=== PATIENT | male | born 1940 | race Caucasian/White ===

== ENCOUNTER 2024-12-10 09:45 | Outpatient (AMB) | payer OTHER, SELFPAY ==
[2024-12-10 10:10] VITALS: BP 170/50; PULSE 34; RESP 18; TEMP 36.2; O2SAT 96
--- NOTE | 2024-12-10 10:10 | A.OFFPC_ITS ---
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 Required: No Accompanied by: Self / Same As Patient Allergies No Known Allergies Allergy (Verified 12/10/24 10:26) Medication List - Last Reconciled 12/10/24 by MICHELLE Rose atorvastatin (Lipitor) 10 mg PO DAILY carbidopa-levodopa 25-100 mg (Sinemet) 1 tab PO TID cyanocobalamin (vitamin B-12) ER (Vitamin B-12 ER) 2,000 mcg PO DAILY furosemide (Lasix) 20 mg PO DAILY lisinopril 10 mg PO DAILY Tobacco use date assessed: 12/10/24 Fall risk assessment: 1 Fall in past year Last assessed Fall Risk: 12/10/24 Dental Screening Dental Screen Date: 12/10/24 Did you have a dental visit in the last 12 months?: No Did you have a dental problem in the last 6 months where you did not have access to dental care?: No Was dental information given to patient?: No 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 Pulliam [facility], OBGYN:N/A Past medical history: Parkinson disease, hyperlipidemia, HTN, multiple falls, second-degree Mobitz 1 AV block, insomnia Medications: Trazodone 50 mg daily at bedtime, lisinopril 10 mg, furosemide 20 mg-was decreased to 10 mg in the hospital, Family HX: heart issues, brother has CA, Problem: The patient is an 84-year-old male presenting with hypertension, bradycardia, and Parkinson's disease symptoms. Hypertension has been a long-standing issue, previously managed with lisinopril, which the patient has been unable to refill due to a change in primary care pro viders. Blood pressure readings at home were around 140/90 mmHg, but recent measurements have been higher. Bradycardia was noted during a previous hospital admission where a pacemaker was recommended but declined by the patient. The heart rate has been consistently low. Parkinson's disease was suspected by a neurologist, although definitive tests were not conducted. The patient experiences difficulty walking and has been prescribed medication that initially caused itching, which has since resolved with dosage adjustments. Peripheral edema has been persistent, particularly in the feet, and is managed with furosemide. The patient refuses to wear compression stockings, which could aid in reducing the swelling. Insomnia is a significant issue, with the patient unable to sleep through the n ight despite trying melatonin and other gihz-fiz-jvskgdr remedies. Trazodone was previously prescribed at 50 mg but was ineffective, leading to consideration of dosage adjustment. Degenerative disc disease is present, contributing to mobility issues and possibly exacerbating the patient's difficulty in walking. Vitamin B12 deficiency was identified through blood tests, necessitating supplementation. 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 [facility] Medical History (Updated 12/13/24 @ 00:02 by MICHELLE Rose) Degenerative disc disease, lumbar Blindness left eye category 3, normal vision right eye Parkinsons disease Insomnia Multiple falls Second degree atrioventricular block, Mobitz (type) I HLD (hyperlipidemia) HTN (hypertension) Family History Paternal Grandfather Heart disease Paternal Uncle Myocardial infarction Social History Household Members: Family Housing: House Alcohol intake: never Patient Tobacco Use Status: Never used Tobacco e-Cigarette/Vaping Use: Never Used Current occupational status: retired Cognitive needs: No Hearing needs: No Vision needs: Yes Questionnaire PHQ-9 Over the last 2 weeks, how often have you been bothered by any of the following problems? 1. Little interest or pleasure in doing things: not at all 2. Feeling down, depressed, or hopeless: not at all 3. Trouble falling or staying asleep, or sleeping too much: nearly every day 4. Feeling tired or having little energy: more than half the days 5. Poor appetite or overeating: not at all 6. Feeling bad about yourself - or that you are a failure or have let yourself or your family down: not at all 7. Trouble concentrating on things, such as reading the newspaper or watching television: not at all 8. Moving or speaking so slowly that other people could have noticed. Or the opposite - being so fidgety or restless that you have been moving around a lot more than usual: not at all 9. Thoughts that you would be better off or of hurting yourself in some way: not at all Total score: 5 Depression Screening Interpretation: Negative Depression Screening Done: Yes 08607 - PHQ-9 Billing: Yes Source: Developed by Drs. Maciel Michel, Yaa Garcia, Shabbir Cyr and colleagues, with an educational olivia from [employer] Thrive Questionnaire Date Thrive assessed: 12/10/24 I am a: Patient What is your living situation today?: I have a steady place to live Within the past 12 months, did the food you bought not last and you didn't have the money to get more?: Often true Within the past 12 months, did you worry whether your food would run out before you got money to buy more?: Often true Do you have trouble paying for medicines?: No Do you have trouble getting transportation to medical appointments?: No Do you have trouble paying your heating and electricity bill?: No Do you have trouble taking care of your child, family member or friend?: No Do you have trouble with day-to-day activities such as bathing, preparing meals, shopping, managing finances, etc.?: Yes Are you currently unemployed and looking for a job?: No Are you interested in more education?: No Please select the resources that you would like help with: None Currently or been in a relationship where the following occur: No concerns reported THRIVE Score: 2 AUDIT C Alcohol Use Questionnaire (AUDIT-C) 1. How often do you have a drink containing alcohol?: Never 3. How often do you have six or more drinks on one occasion?: Never Total Score: 0 JH-7 AMB Questionnaire JH-7 Date JH - 7 assessed: 12/10/24 Feeling nervous, anxious, or on edge: 0 = Not at all Not being able to stop or control worryin = Not at all Worrying too much about different things: 0 = Not at all Trouble relaxin = Several days Being so restless that it is hard to sit still: 1 = Several days Becoming easily annoyed or irritable: 1 = Several days Feeling afraid as if something awful might happen: 0 = Not at all Total JH-7 score (0-4 normal; 5-9 mild; 10-14 moderate; 15-21 severe): 3 Source: Developed by Drs. Maciel Michel, Yaa Garcia, Shabbir Cyr and colleagues, with an educational olivia from [employer] JH-7 Assessment Billing JH-7 Assessment Tool: JH-7 Assessment 03477 Review of Systems Const Reports difficulty sleeping and Denies headache(s) Eyes Reports loss of vision (left eye) ENT Denies vertigo, Denies dizziness, Denies headache(s) and Denies sore throat Card Denies chest pain, Reports leg edema (Peripheral edema greater in left leg) and Denies lightheadedness Resp Denies cough, Denies hemoptysis and Denies wheezing GI Denies abdominal pain, Denies melena, Denies constipation, Denies diarrhea and Denies vomiting Denies dysuria, Denies urinary frequency and Denies urinary urgency Musc Reports back pain, Denies arthralgias, Denies joint swelling, Denies numbness and Denies tingling Neuro Denies Abnormal speech present, Denies behavioral changes, Denies vertigo, Denies dizziness, Denies headache(s), Reports loss of vision (left eye), Denies memory loss, Denies numbness and Denies tingling Psych Denies anxiety, Denies behavioral changes, Denies depression, Denies memory loss and Denies panic attacks Kashif/Lymph Denies easy bleeding and Denies easy bruising Aller/Immun Denies wheezing Physical exam (Primary Care) Vital Signs: Last Vital Signs Temp 97.1 F 12/10/24 10:10 Pulse 34 L 12/10/24 10:10 Resp 18 12/10/24 10:10 BP 170/50 H 12/10/24 10:10 Pulse Ox 96 12/10/24 10:10 Oxygen Delivery Method Room Air 12/10/24 10:10 Tobacco/Smoking Status: Tobacco use Status Tobacco use date assessed 12/10/24 12/10/24 10:23 Patient Tobacco Use Status Never used Tobacco 12/10/24 10:23 e-Cigarette/Vaping Use Never Used 12/10/24 10:23 PHQ-9: PHQ-9 Score PHQ-9: Total score 5 12/10/24 10:31 Depression Screening Interpretation: Negative Thrive Assessment: Date of Thrive Assessment Date Thrive assessed 12/10/24 12/10/24 10:23 Currently or been in a relationship where the following occur: No concerns reported Const General: healthy appearing, no acute distress, alert and awake Nutritional Appearance: well nourished Orientation/consciousness: oriented to person, oriented to place and oriented to time HENMT Ears: TM's normal bilaterally General nose exam: Normal nasal mucous membranes and turbinates present Eyes Conjunctivae: conjunctivae normal Sclerae: sclerae normal Pupils: Pupils normal by confrontation (Right eye), Pupil accommodation reflex normal (Right eye) and Other pupil findings (No left eye) Neck Neck: Yes no lymphadenopathy and Yes no JVD Thyroid: Thyroid normal Carotids: no bruits Resp Effort & Inspection: normal respiratory effort and not tachypneic Auscultation: no crackles, no rales, no rhonchi and no wheezes Cardio Rate: regular rate Rhythm: regular rhythm Heart sounds: no murmurs and normal S1 and S2 GI Palpation (GI): Soft to palpation, nontender, no hepatomegaly and no spl enomegaly Auscultation: normal bowel sounds Skin General skin exam: no rashes or lesions noted and dry skin Neuro General: oriented to person, oriented to place, oriented to time and Unable to assess gait Speech: No Abnormal speech present Gait exam (Neuro): Unable to assess gait and Assisted gait required Gait assisted method: wheelchair bound Motor exam (neuro): strength not 5/5 throughout (3.5/5 in BLE) and no tremor noted Extrem Right upper extremity: full ROM Left upper extremity: full ROM Right lower extremity: full ROM; no edema Left lower extremity: full ROM; no edema Psych Mental Status: mental status grossly normal Speech and movement: Normal speech and movement present Affect: normal affect Attitude: cooperative Thought process: Normal thought process present Coding Level of Care Code New Pt Level 4 (81829) Diagnoses Hypertension, unspecified type I10 Hypertension type: unspecified Hyperlipidemia, unspecified hyperlipidemia type E78.5 Hyperlipidemia type: unspecified Second degree atrioventricular block, Mobitz (type) I I44.1 Insomnia, unspecified type G47.00 Insomnia type: unspecified Parkinson's disease without dyskinesia or fluctuating manifestations G20.A1 Dyskinesia presence: without dyskinesia Fluctuating manifestations: without fluctuating manifestations Blindness left eye category 3, normal vision right eye H54.42A3 Bradycardia R00.1 B12 deficiency E53.8 Additional Codes PHQ-9 - 56169 - PHQ-9 Billing: Yes ([id number]) JH-7 Assessment Billing - JH-7 Assessment Tool: JH-7 Assessment 46640 ([id number]) Time Spent (min) 42 Assessment & Plan Assessment & Plan (1) HTN (hypertension): Code(s): I10 - Essential (primary) hypertension Category: Medical Qualifiers: Hypertension type: unspecified Qualified Code(s): I10 - Essential (primary) hypertension Plan: BP 170/50 with heart rate 34. Patient denies feeling dizzy or lightheaded. Reinforced low-salt diet. Continue lisinopril 10 mg daily, furosemide 10 mg daily. (2) HLD (hyperlipidemia): Code(s): E78.5 - Hyperlipidemia, unspecified Category: Medical Qualifiers: Hyperlipidemia type: unspecified Qualified Code(s): E78.5 - Hyperlipidemia, unspecified Plan: We will order labs to evaluate Discussed lifestyle modifications including dietary changes and physical activity Continue atorvastatin 10 mg daily (3) Second degree atrioventricular block, Mobitz (type) I: Code(s): I44.1 - Atrioventricular block, second degree Category: Medical Plan: Heart rate 34 in office. Patient's brother reports that he declined pacemaker in the hospital. (4) Insomnia: Code(s): G47.00 - Insomnia, unspecified Category: Medical Qualifiers: Insomnia type: unspecified Qualified Code(s): G47.00 - Insomnia, unspecified Plan: Reports difficulty sleeping. He is currently on trazodone 50 mg at bedtime. Trazodone was increased to 100 mg p.o. at bedtime (5) Parkinsons disease: Code(s): G20.A1 - Parkinson's disease without dyskinesia, without mention of fluctuations Category: Medical Qualifiers: Dyskinesia presence: without dyskinesia Fluctuating manifestations: without fluctuating manifestations Qualified Code(s): G20.A1 - Parkinson's disease without dyskinesia, without mention of fluctuations Plan: No focal deficits noted. The patient is sitting out wheelchair and it was reported that he does not walk. Continue carbidopa-levodopa 25-100 mg 1 tab t.i.d.. Follow up with Neurology as scheduled (6) Blindness left eye category 3, normal vision right eye: Code(s): H54.42A3 - Blindness left eye category 3, normal vision right eye Category: Medical Plan: The patient does not have a left eye. The patient things that he sees sufficiently out of the right eye and he is not interested in any added interventions or new doctors. (7) Bradycardia: Code(s): R00.1 - Bradycardia, unspecified Category: Medical Plan: HR 34, he found to be in type 1 Mobitz second-degree AV heart block. He is asymptomatic. Added, he also declined pacemaker when he was symptomatic in the hospital. (8) B12 deficiency: Code(s): E53.8 - Deficiency of other specified B group vitamins Category: Medical Plan The patient to return in 7 weeks for complete physical. Obtain ordered labs prior to visit Orders: Orders Lipid Panel 12/10/24 Z00.00 - Encounter for general adult medical examination without abnormal findings UA CC w/rflx Micro + Cult 12/10/24 Z00. - Encounter for general adult medical examination without abnormal findings Vitamin D 25-OH Total 12/10/24 Z00.00 - Encounter for general adult medical examination without abnormal findings Vitamin B12 and Folate 12/10/24 Z00.00 - Encounter for general adult medical examination without abnormal findings Complete Blood Count Auto Diff 12/10/24 Z00.00 - Encounter for general adult medical examination without abnormal findings Comprehensive [place]. Panel Fast 12/10/24 Z00.00 - Encounter for general adult medical examination without abnormal findings TSH reflex Free T4 12/10/24 Z00.00 - Encounter for general adult medical examination without abnormal findings Medications: New atorvastatin (Lipitor) 10 mg PO DAILY 90 tabs 3RF furosemide (Lasix) 10 mg (1/2 x 20 mg) PO DAILY 15 tabs 1RF 30 days trazodone 100 mg PO BEDTIME PRN 30 tabs 3RF sleep lisinopril 10 mg PO DAILY 30 tabs 3RF
--- OUTSIDE RECORDS SUMMARY | 2024-12-10 10:21 | XMS_ITS | Clinical Summary ---
Author Organization [address] [place] [address] Address [address] [place] [address] Phone Care Team Providers Care Computer Applications Engineer Name Role Phone Devika Valerio MD Primary Care Provider [phone] Allergies No known active allergies Medications traZODone (DESYREL) 50 mg tablet Take 1 tablet by mouth at bedtime 01/05/2024 Active lisinopriL (PRINIVIL,ZESTR IL) 10 mg tablet Take 1 Tablet by mouth daily for 180 days. 11/03/2023 Active ammonium lactate (LAC-HYDRIN) 12 % lotion Apply to soles of feet daily. At night wear socks to bed 12/17/2022 Active ergocalciferol (VITAMIN D-2) 1,250 mcg (50,000 unit) capsule Take 1 Tablet by mouth once a week. 08/07/2022 Active Active Problems Problem Noted Date Diagnosed Date Ankle edema, bilateral 09/06/2022 Vitamin B12 deficiency 09/06/2022 Social History Tobacco Use Types Packs/Day Years Used Date Smoking Tobacco: Never Smokeless Tobacco: Never Alcohol Use Standard Drinks/Week Comments Never 0 (1 standard drink = 0.6 oz pur e alcohol) Sex and Gender Information Value Date Recorded Sex Assigned at Not on file Legal Sex Male 8:35 PM EST Gender Identity Not on file Sexual Orientation Not on file Obstetrics History Last Filed Vital Signs Vital Sign Reading Time Taken Comments Blood Pressure 100/58 11/03/2023 10:35 AM EDT Pulse 65 05/26/2023 10:34 AM EST Temperature - - Respiratory Rate - - Oxygen Saturation - - Inhaled Oxygen Concentration - - Weight 66.2 kg (146 lb) 06/22/2024 11:09 AM EDT Height 157.5 cm (5' 2.01 ) 06/22/2024 11:09 AM E DT Body Mass Index 26.7 06/22/2024 11:09 AM EDT Plan of Treatment Upcoming Encounters Date Type Department Care Team (Late st Contact Info) Description 01/24/2025 10:30 AM EST Office Visit Orthopedic Surgery - [place] [address] [facility] [address] [place] [phone] David Daniel, SALONI [address] [facility] [address] [place] [address] Health Maintenance Due Date Last Done Comments DTaP,Tdap,and Td Vaccines (1 - Tdap) 1959 Pneumococcal Vaccine: 50+ Years (1 of 1 - PCV) 1988 Zoster Vaccines (1 of 2) 1988 RSV Immunization Adult Patients (1 - 1-dose 75+ series) 2013 Falls Risk Assessment 04/18/2023 Medicare Annual Wellness Visit 04/18/2023 Social Influencers of Health Screening 04/18/2023 Depression Screening 03/24/2024 Hypertension/CHF/CAD Annual BMP Blood Test 11/02/2024 11/03/2023, 11/03/2023 COVID-19 Vaccine ( - season) 2024 02/17/2022, 02/21/2021, 06/09/2020, Additional history exists Influenza Vaccine (#1) 2024 Cholesterol Screening (Lipid Panel) 01/18/2028 01/17/2023 HIB Vaccines Aged Out No longer eligi ble based on patient's age to complete this topic HPV Vaccines Aged Out No longer eligi ble based on patient's age to complete this topic Hepatitis A Vaccines Aged Out No long er eligible based on patient's age to complete this topic Hepatitis B Vaccines Aged Out No long er eligible based on patient's age to complete this topic IPV Vaccines Aged Out No longer eligi ble based on patient's age to complete this topic MMR Vaccines Aged Out No longer eligi ble based on patient's age to complete this topic Meningococcal ACWY Vaccine Aged Out N o longer eligible based on patient's age to complete this topic Meningococcal B Vaccine Aged Out No l onger eligible based on patient's age to complete this topic RSV Immunization Patients Under 20 months Aged Out No longer eligible based on patient's age to complete this topic Varicella Vaccines Aged Out No longer eligible based on patient's age to complete this topic Procedures Procedure Name Priority Date/Time Associated Diagnosis Comments ANNUAL BMP BLOOD TEST Routine 11/03/2023 LIPID PANEL Routine 01/17/2023 from Last 3 Months or Most Recently Relevant to Health Maintenance Results * Annual BMP Blood Test (11/03/2023) Annual BMP Blood Test abstracted Historical Provider HEALTH MAINTENANCE Final Result * (ABNORMAL) Lipid panel (01/17/2023) LDL/HDL Ratio 4 0 - 4 Triglycerides 81 0 - 150 mg/dL Cholesterol 261(A) 0 - 200 mg/dL HDL 72 >=40 mg/dL LDL Cholesterol 173(A) 0 - 100 mg/dL Blood Venous blood specimen / Unknown Historical Provider LAB BLOOD ORDERABLES Johnna l Result from Last 3 Months or Most Recently Relevant to Health Maintenance Insurance [employer] Care Teams Computer Applications Engineer Relationship Specialty Start Date End Date Devika Valerio MD [address] [place] [address] PCP - General Internal Medicine 06/22/24
--- OUTSIDE RECORDS SUMMARY | 2024-12-10 10:21 | XMS_ITS ---
Author Organization [facility] Care Team Providers Care Scraper Meat Name Role Phone Aubrey Dee Unavailable Unavailable Josh Mcgowan Unavailable Unavailable Evangelina Spaulding Unavailable Unavailable Shane Castaneda Unavailable Unavailable Allergies and adverse reactions No Known Allergies Care Team Name Role Address Phone Organization Dates Shane Castaneda PCP [address] [facility] [address], [place], [address], [facility] (Office): : [facility] 09/18/2023 - 10/24/2023 Aubrey Dee [address] [place] [address], [phone], [place] (Office): [facility] 09/18/2023 - 10/24/2023 Josh Mcgowan [address] [facility] [address], [place], [address], [place] (Office): : : [facility] 09/18/2023 - 10/24/2023 Evangelina Spaulding [address] [facility] [address], [place], [address], [place] (Office): : [facility] 09/18/2023 - 10/24/2023 Immunizations Immunization Status Vaccine Details Vaccine Code CodeSystem Joce e Notes TB 1 Step Mantoux (PPD) completed tuberculin skin test; unspecified formulation lotNumber: [id number] expiry: 06/22/2026 Mfg: [employer] Given 0.1 ml Right Forearm intradermally 98 CVX created date: 09/23/2023 consent date: 09/23/2023 administere d date: 09/23/2023 Mental Status Section Date Assessment Total Score Description 10/24/2023 BIMS 10 moderate cognit pina impairment CAM 0 No delirium ind icated PHQ-9 00 09/22/2023 BIMS 08 moderate cognit pina impairment CAM 0 No delirium ind icated PHQ-9 00 Problems Problem # Description Date of onset Resolved Date Code CodeSystem Concern Status 1 ABNORMAL POSTURE 09/18/[address] a ctive 2 ACIDOSIS, UNSPECIFIED 09/18/[address] active 3 ATRIOVENTRICULAR BLOCK, SECOND DEGREE 09/18/[address] active 4 ESSENTIAL (PRIMARY) HYPERTENSION 09/18/[address] active 5 HYPERLIPIDEMIA, UNSPECIFIED 09/18/[address] active 6 LEGAL BLINDNESS, DEFINED IN [place] 09/18/[address] active 7 MUSCLE WEAKNESS (GENERALIZED) 09/18/[address] active 8 OTHER ABNORMAL INVOLUNTARY MOVEMENTS 09/18/[address] active 9 OTHER REDUCED MOBILITY 09/18/[address] active 10 OTHER SPECIFIED DISORDERS OF MUSCLE 09/18/[address] active 11 OTHER SYMPTOMS AND SIGNS INVOLVING THE MUSCULOSKELETAL SYSTEM 09/18/[address] active 12 REPEATED FALLS 09/18/[address] ac tive 13 RHABDOMYOLYSIS 09/18/[address] ac tive 14 SPINAL STENOSIS, LUMBAR REGION WITHOUT NEUROGENIC CLAUDICATION 09/18/[address] active Reason for Referral No Reasons for Referral Entered Social History Social History Observation Description Start Date End Date Code Code System Current Smoking Status Tobacco smoking consumption unknown 024654084 SNOMED CT Sex Assigned At Male 1940 72778-9 [facility] Gender Identity Sexual Orientation Vital Signs Code Code System Vitals Name Values and Units Timing Information 15900-8 [facility] Pain Level Value=0.0 10/24/2023 8462-4 [facility] Blood Pressure-Diastolic Value=59 Un its=mmHg 10/22/2023 8480-6 [facility] Blood Pressure-Systolic Tjuoq=186 Un its=mmHg 10/22/2023 8310-5 [facility] Body Temperature Value=98.1 Units= F 10/22/2023 8867-4 [facility] Heart rate Value=45.0 Units=/min 26043-0 [facility] O2 % BldC Oximetry Value=90.0 Units= % 10/22/2023 9279-1 [facility] Respiratory Rate Value=16.0 Units=/m in 10/19/2023 77621-7 LOINC Weight Bkbon=324.2 Units=Lbs 05/2023 8302-2 [facility] Height Value=65.0 Units=Inches 09/18/2023
== END 2024-12-10 11:17 | disposition home or self-care (01) ==
LOC: HO.HMCH 09:46
DX: I10 Essential (primary) hypertension (principal); E78.5 Hyperlipidemia, unspecified; G20.A1 Parkinson's disease without dyskinesia, without mention of fluctuations; I44.1 Atrioventricular block, second degree; G47.00 Insomnia, unspecified; H54.42A3 Blindness left eye category 3, normal vision right eye; R00.1 Bradycardia, unspecified; E53.8 Deficiency of other specified B group vitamins

== ENCOUNTER → 2024-12-10 09:45 | Outpatient (BNVA) | payer OTHER, SELFPAY | DX: I10 Essential (primary) hypertension (principal); G20.A1 Parkinson's disease without dyskinesia, without mention of fluctuations; R00.1 Bradycardia, unspecified; R60.0 Localized edema; G47.00 Insomnia, unspecified; E53.8 Deficiency of other specified B group vitamins; E78.5 Hyperlipidemia, unspecified; I44.1 Atrioventricular block, second degree; H54.42A3 Blindness left eye category 3, normal vision right eye | CPT/HCPCS: 96127 ==

== ENCOUNTER 2024-12-15 09:03 | Outpatient (REF) | payer MEDICARE, SELFPAY ==
[2024-12-15 09:41] LABS: MANUAL DIFF FLAG NO
--- OUTSIDE RECORDS SUMMARY | 2024-12-15 10:42 | XMS_ITS | Clinical Summary ---
Author Organization [address] [place] [address] Address [address] [place] [address] Phone Care Team Providers Care Batter Depositor Name Role Phone Devika Valerio MD Primary Care Provider [phone] Allergies No known active allergies Medications traZODone [...] AM EST Office Visit Orthopedic Surgery - [place] [address] [facility] [address] [place] [phone] David Daniel, SALONI [address] [facility] [address] [place] [address] Health Maintenance Due Date Last Done Comments [...] Insurance [employer] Care Teams Batter Depositor Relationship Specialty Start Date End Date Devika Valerio MD [address] [place] [address] PCP - General Internal Medicine 06/22/24
--- OUTSIDE RECORDS SUMMARY | 2024-12-15 10:42 | XMS_ITS ---
Author Organization [facility] Care Team Providers Care Gauge Maker Apprentice Name Role Phone Aubrey Dee Unavailable Unavailable Josh Mcgowan Unavailable Unavailable Evangelina Spaulding Unavailable Unavailable Shane Castaneda Unavailable Unavailable Allergies and adverse reactions No Known Allergies Care Team Name Role Address Phone Organization Dates Shane Castaneda PCP [address] [facility] [address], [place], [address], [facility] (Office): : [facility] 09/18/2023 - 10/24/2023 Aubrey Dee [address] [place] [address], [phone], [place] (Office): [facility] 09/18/2023 - 10/24/2023 Josh Mcgowan [address] [facility] [address], [place], [address], [place] (Office): : : [facility] 09/18/2023 - 10/24/2023 Evangelina Spaulding [address] [facility] [address], [place], [address], [place] (Office): : [facility] 09/18/2023 - 10/24/2023 Immunizations Immunization Status Vaccine Details Vaccine Code CodeSystem Joce e Notes TB 1 Step Mantoux (PPD) completed tuberculin skin test; unspecified formulation lotNumber: [id number] expiry: 06/22/2026 Mfg: [employer] Given 0.1 [...] CodeSystem Concern Status 1 ABNORMAL POSTURE 09/18/[address] a ctive 2 ACIDOSIS, UNSPECIFIED 09/18/[address] active 3 ATRIOVENTRICULAR BLOCK, SECOND DEGREE 09/18/[address] active 4 ESSENTIAL (PRIMARY) HYPERTENSION 09/18/[address] active 5 HYPERLIPIDEMIA, UNSPECIFIED 09/18/[address] active 6 LEGAL BLINDNESS, DEFINED IN [place] 09/18/[address] active 7 MUSCLE WEAKNESS (GENERALIZED) 09/18/[address] active 8 OTHER ABNORMAL INVOLUNTARY MOVEMENTS 09/18/[address] active 9 OTHER REDUCED MOBILITY 09/18/[address] active 10 OTHER SPECIFIED DISORDERS OF MUSCLE 09/18/[address] active 11 OTHER SYMPTOMS AND SIGNS INVOLVING THE MUSCULOSKELETAL SYSTEM 09/18/[address] active 12 REPEATED FALLS 09/18/[address] ac tive 13 RHABDOMYOLYSIS 09/18/[address] ac tive 14 SPINAL STENOSIS, LUMBAR REGION WITHOUT NEUROGENIC CLAUDICATION 09/18/[address] active Reason for Referral No Reasons for Referral Entered Social History Social History Observation Description Start Date End Date Code Code System Current Smoking Status Tobacco smoking consumption unknown 613677432 SNOMED CT Sex Assigned At Male 1940 92732-0 [facility] Gender Identity Sexual Orientation Vital Signs Code Code System Vitals Name Values and Units Timing Information 90997-7 [facility] Pain Level Value=0.0 10/24/2023 8462-4 [facility] Blood Pressure-Diastolic Value=59 Un its=mmHg 10/22/2023 8480-6 [facility] Blood Pressure-Systolic Pgkoe=885 Un its=mmHg 10/22/2023 8310-5 [facility] Body Temperature Value=98.1 Units= F 10/22/2023 8867-4 [facility] Heart rate Value=45.0 Units=/min 45450-3 [facility] O2 % BldC Oximetry Value=90.0 Units= % 10/22/2023 9279-1 [facility] Respiratory Rate Value=16.0 Units=/m in 10/19/2023 02184-4 [facility] Weight Rthrw=631.2 Units=Lbs 05/2023 8302-2 [facility] Height Value=65.0 Units=Inches 09/18/2023
[2024-12-15 11:10] LABS: Hematocrit 33.4 % (42.0-52.0); Hemoglobin 11.2 g/dl (14.0-18.0); Imm Gran Abs Auto 0.02 X10*3/uL (0.00-0.03); Imm Gran Pct Auto 0.3 % (0.0-0.4); Lymphocytes Absolute Auto 1.1 X10*3/uL (1.2-4.9); Mean Corpuscular HGB Conc 33.5 g/dl (31.0-36.0); Mean Corpuscular Hemoglobin 31.5 pg (27.0-33.0); Mean Corpuscular Volume 93.8 fL (80.0-98.0); NRBC Abs Auto 0.000 X10*3/uL (0.0-0.012); NRBC Pct Auto 0.0 /100WBC (0.0-0.2); Platelet Count 191 X10*3/uL (160-400); Red Blood Count 3.56 X10*6/uL (4.60-5.80); White Blood Count 7.5 X10*3/uL (4.8-10.8)
[2024-12-15 12:12] LABS: Alanine Aminotransferase < 6 U/L (0-40); Albumin Level 3.8 g/dL (3.5-5.0); Alkaline Phosphatase 85 U/L (39-117); Anion Gap 12 (12-20); Aspartate Amino Transferase 23 U/L (5-37); Blood Urea Nitrogen 32 mg/dL (9-16); Calcium 8.7 mg/dL (8.4-10.2); Carbon Dioxide 22 mmol/L (22-29); Chloride 111 mmol/L (96-108); Cholesterol 204 mg/dL (<200); Estimated Glomerular Filt Rate > 60; HDL Cholesterol 48 mg/dL (>40); Potassium 4.0 mmol/L (3.3-5.1); Sodium 141 mmol/L (135-145); Total Protein 6.7 g/dL (6.5-8.0); Triglycerides 74 mg/dL (<150)
[2024-12-15 12:23] LABS: Folate 4.7 ng/mL (> or = 4.0); Vitamin B12 1126 pg/mL (200-900)
== END 2024-12-15 09:04 | disposition home or self-care (01) ==
LOC: HO.LAB 09:03
DX: Z00.00 Encounter for general adult medical examination without abnormal findings (principal); Z13.1 Encounter for screening for diabetes mellitus; Z13.6 Encounter for screening for cardiovascular disorders; Z13.29 Encounter for screening for other suspected endocrine disorder
CPT/HCPCS: 36415; 80053; 80061; 82306; 82607; 82746; 84443; 85025

== ENCOUNTER 2025-01-25 09:29 | Outpatient (AMB) | payer MEDICARE, SELFPAY ==
[2025-01-25 09:34] VITALS: BP 146/60; PULSE 67; RESP 18; O2SAT 97
--- NOTE | 2025-01-25 09:34 | A.OFFPC_ITS ---
Vital Signs 01/25/25 09:34 BMI Reason not done Patient refused/unable BP 146/60 H Blood Pressure Location Lt brachial Position Sitting Respiration 18 Pulse 67 Pulse Source Pulse Oximeter Temp Source Temporal Artery Scan Pulse Oximetry (%) 97 Oxygen Delivery Method Room Air Intake Visit Reasons: *7wk f/u Executive Account Manager Required: No Accompanied by: Self / Same As Patient Allergies No Known Allergies Allergy (Verified 01/25/25 09:46) Medication List - Last Reconciled 01/25/25 by MICHELLE Rose atorvastatin (Lipitor) 10 mg PO DAILY carbidopa-levodopa 25-100 mg (Sinemet) 1 tab PO TID cyanocobalamin (vitamin B-12) ER (Vitamin B-12 ER) 2,000 mcg PO DAILY furosemide (Lasix) 10 mg (1/2 x 20 mg) PO DAILY 30 days lisinopril 10 mg PO DAILY trazodone 100 mg PO BEDTIME PRN Tobacco use date assessed: 01/25/25 Fall risk assessment: No Falls in past year Last assessed Fall Risk: 01/25/25 Dental Screening Dental Screen Date: 01/25/25 Did you have a dental visit in the last 12 months?: No Did you have a dental problem in the last 6 months where you did not have access to dental care?: No Was dental information given to patient?: No HPI *7wk f/u HPI Details Patient presenting for annual physical exam Dentist: not in a while Eye: not in a while. He is not interested in getting this done Snellen: Right: Left: Corrected vision:yes- glasses STI screening: Colonoscopy: never had a colonoscopy and is not interested in getting one Pap Smer:n/a PHQ-9: Flu:does not usually take the flu vaccine COVID: x2 Tdap:declines Diet: regular Exercise: The patient is unable to walk like he was in the past [facility] Medical History Degenerative disc disease, lumbar Blindness left eye category 3, normal vision right eye Parkinsons disease Insomnia Multiple falls Second degree atrioventricular block, Mobitz (type) I HLD (hyperlipidemia) HTN (hypertension) Family History Paternal Grandfather Heart disease Paternal Uncle Myocardial infarction Social History Household Members: Family Housing: House Alcohol intake: never Patient Tobacco Use Status: Never used Tobacco e-Cigarette/Vaping Use: Never Used Current occupational status: retired Cognitive needs: No Hearing needs: No Vision needs: Yes Questionnaire PHQ-9 Over the last 2 weeks, how often have you been bothered by any of the following problems? Depression Screening Interpretation: Negative Depression Screening Done: Yes Source: Developed by Drs. Maciel Michel, Shabbir Mauro and colleagues, with an educational olivia from [employer]. Thrive Questionnaire Date Thrive assessed: 12/08/24 I am a: Patient What is your living situation today?: I have a steady place to live Within the past 12 months, did the food you bought not last and you didn't have the money to get more?: Often true Within the past 12 months, did you worry whether your food would run out before you got money to buy more?: Often true Do you have trouble paying for medicines?: No Do you have trouble getting transportation to medical appointments?: No Do you have trouble paying your heating and electricity bill?: No Do you have trouble taking care of your child, family member or friend?: No Do you have trouble with day-to-day activities such as bathing, preparing meals, shopping, managing finances, etc.?: Yes Are you currently unemployed and looking for a job?: No Are you interested in more education?: No Please select the resources that you would like help with: None Currently or been in a relationship where the following occur: No concerns reported THRIVE Score: 2 JH-7 AMB Questionnaire JH-7 Date JH - 7 assessed: 12/10/24 Source: Developed by Drs. Maciel Michel, Shabbir Mauro and colleagues, with an educational olivia from [employer]. Review of Systems Const Reports difficulty sleeping and Denies headache(s) Eyes Reports loss of vision (left eye) ENT Denies vertigo, Denies dizziness, Denies headache(s) and Denies sore throat Card Denies chest pain, Reports leg edema (Peripheral edema greater in left leg) and Denies lightheadedness Resp Denies cough, Denies hemoptysis and Denies wheezing GI Denies abdominal pain, Denies melena, Denies constipation, Denies diarrhea and Denies vomiting Denies dysuria, Denies urinary frequency and Denies urinary urgency Musc Reports back pain, Denies arthralgias, Denies joint swelling, Denies numbness and Denies tingling Neuro Denies Abnormal speech present, Denies behavioral changes, Denies vertigo, Denies dizziness, Denies headache(s), Reports loss of vision (left eye), Denies memory loss, Denies numbness and Denies tingling Psych Denies anxiety, Denies behavioral changes, Denies depression, Denies memory loss and Denies panic attacks Kashif/Lymph Denies easy bleeding and Denies easy bruising Aller/Immun Denies wheezing Physical exam (Primary Care) Vital Signs: Last Vital Signs Pulse 67 01/25/25 09:34 Resp 18 01/25/25 09:34 BP 146/60 H 01/25/25 09:34 Pulse Ox 97 01/25/25 09:34 Oxygen Delivery Method Room Air 01/25/25 09:34 Tobacco/Smoking Status: Tobacco use Status Tobacco use date assessed 01/25/25 01/25/25 09:42 Patient Tobacco Use Status Never used Tobacco 01/25/25 09:42 e-Cigarette/Vaping Use Never Used 01/25/25 09:42 Depression Screening Interpretation: Negative Thrive Assessment: Date of Thrive Assessment Date Thrive assessed 12/08/24 01/25/25 09:42 Currently or been in a relationship where the following occur: No concerns reported Const General: healthy appearing, no acute distress, alert and awake Nutritional Appearance: well nourished Orientation/consciousness: oriented to person, oriented to place and oriented to time [facility] Ears: TM's normal bilaterally General nose exam: Normal nasal mucous membranes and turbinates present Eyes Conjunctivae: conjunctivae normal Sclerae: sclerae normal Pupils: Pupils normal by confrontation (Right eye), Pupil accommodation reflex normal (Right eye) and Other pupil findings (No left eye) Neck Neck: Yes no lymphadenopathy and Yes no JVD Thyroid: Thyroid normal Carotids: no bruits Resp Effort & Inspection: normal respiratory effort and not tachypneic Auscultation: no crackles, no rales, no rhonchi and no wheezes Cardio Rate: regular rate Rhythm: regular rhythm Heart sounds: no murmurs and normal S1 and S2 GI Palpation (GI): Soft to palpation, nontender, no hepatomegaly and no splenomegaly Auscultation: normal bowel sounds Skin General skin exam: no rashes or lesions noted and dry skin Neuro General: oriented to person, oriented to place, oriented to time and Unable to assess gait Speech: No Abnormal speech present Gait exam (Neuro): Unable to assess gait and Assisted gait required Gait assisted method: wheelchair bound Motor exam (neuro): strength not 5/5 throughout (3.5/5 in BLE) and no tremor noted Extrem Right upper extremity: full ROM Left upper extremity: full ROM Right lower extremity: full ROM and edema Details: non-pitting and 2+ Left lower extremity: full ROM and edema Details: non-pitting and 2+ Psych Mental Status: mental status grossly normal Speech and movement: Normal speech and movement present Affect: normal affect Attitude: cooperative Thought process: Normal thought process present Results Reviewed Results Reviewed: Laboratory Tests 12/15/24 09:39 WBC 7.5 RBC 3.56 L Hgb 11.2 L Hct 33.4 L MCV 93.8 MCH 31.5 MCHC 33.5 RDW 13.1 Plt Count 191 MPV 12.6 H Sodium 141 Potassium 4.0 Chloride 111 H Carbon Dioxide 22 Anion Gap 12 BUN 32 H Creatinine 1.13 Estimated GFR > 60 Fasting Glucose 96 Calcium 8.7 Total Bilirubin 0.2 AST 23 ALT < 6 Alkaline Phosphatase 85 Total Protein 6.7 Albumin 3.8 Triglycerides 74 Cholesterol 204 H LDL Cholesterol, Calc 142 H HDL Cholesterol 48 Vitamin B12 1126 H 25-OH Vitamin D Total 51.0 Folate 4.7 TSH 1.07 Coding Level of Care Code Est Pt Prev Care >65y(45846) Diagnoses Annual physical exam Z00. Hypertension, unspecified type I10 Hypertension type: unspecified Hyperlipidemia, unspecified hyperlipidemia type E78.5 Hyperlipidemia type: unspecified Second degree atrioventricular block, Mobitz (type) I I44.1 Insomnia, unspecified type G47.00 Insomnia type: unspecified Parkinsons disease G20.A1 Blindness left eye category 3, normal vision right eye H54.42A3 Bradycardia R00.1 B12 deficiency E53.8 Time Spent (min) 36 Assessment & Plan Assessment & Plan (1) Annual physical exam: Code(s): Z00.00 - Encounter for general adult medical examination without abnormal findings Category: Medical (2) HTN (hypertension): Code(s): I10 - Essential (primary) hypertension Category: Medical Qualifiers: Hypertension type: unspecified Qualified Code(s): I10 - Essential (primary) hypertension Plan: BP 146/60 decreased from 170/50 with heart rate 67. Patient denies feeling dizzy or lightheaded. Reinforced low-salt diet. Continue lisinopril 10 mg daily, furosemide 10 mg daily. (3) HLD (hyperlipidemia): Code(s): E78.5 - Hyperlipidemia, unspecified Category: Medical Qualifiers: Hyperlipidemia type: unspecified Qualified Code(s): E78.5 - Hyperlipidemia, unspecified Plan: Triglycerides 74, total cholesterol 204, LDL 142, HDL 48 Discussed lifestyle modifications including dietary changes and physical activity Continue atorvastatin 10 mg daily (4) Second degree atrioventricular block, Mobitz (type) I: Code(s): I44.1 - Atrioventricular block, second degree Category: Medical Plan: Heart rate 67 in office today on previous visit is was 34. Patient's brother reports that he declined pacemaker in the hospital. (5) Insomnia: Code(s): G47.00 - Insomnia, unspecified Category: Medical Qualifiers: Insomnia type: unspecified Qualified Code(s): G47.00 - Insomnia, unspecified Plan: Reports difficulty sleeping. He is currently on trazodone 50 mg at bedtime. Trazodone was increased to 100 mg p.o. at bedtime. This has not been getting continuously. The patient brother reports that this was given to the patient and the day after the patient was noted to be groggy the following day. Hence, the trazodone was held out of fear of the patient trying to get up at night and falling. Requested for medication to prevent the patient from waking up in the nighttime. Explained to family members that this would increase the patient risk of falling and plus, he would need to be monitored to make sure that he is not overly sedated, which could cause respiratory depression. (6) Parkinsons disease: Code(s): G20.A1 - Parkinson's disease without dyskinesia, without mention of fluctuations Category: Medical Plan: No focal deficits noted. The patient is sitting out wheelchair and it was reported that he does not walk. Continue carbidopa-levodopa 25-100 mg 1 tab t.i.d.. Follow up with Neurology as scheduled (7) Blindness left eye category 3, normal vision right eye: Code(s): H54.42A3 - Blindness left eye category 3, normal vision right eye Category: Medical Plan: The patient does not have a left eye. The patient things that he sees sufficiently out of the right eye and he is not interested in any added interventions or new doctors. (8) Bradycardia: Code(s): R00.1 - Bradycardia, unspecified Category: Medical Plan: HR 34, he found to be in type 1 Mobitz second-degree AV heart block. He is asy mptomatic. Added, he also declined pacemaker when he was symptomatic in the hospital. Heart rate was 67 in office today. (9) B12 deficiency: Code(s): E53.8 - Deficiency of other specified B group vitamins Category: Medical Plan: Vitamin B12 1126. Encouraged the patient's brother to give the patient vitamin B12 every other day instead of daily. We will rechecked levels in 3 months. Plan Follow up in 3 months Orders: Orders Complete Blood Count Auto Diff 3 Months E53.8 - Deficiency of other specified B group vitamins, E78.5 - Hyperlipidemia, unspecified, G20.A1 - Parkinson's disease without dyskinesia, without mention of fluctuations, G47.00 - Insomnia, unspecified, I10 - Essential (primary) hypertension, I44.1 - Atrioventricular block, second degree, R00.1 - Bradycardia, unspecified Vitamin B12 and Folate 3 Months E53.8 - Deficiency of other specified B group vitamins, E78.5 - Hyperlipidemia, unspecified, G20.A1 - Parkinson's disease without dyskinesia, without mention of fluctuations, G47.00 - Insomnia, unspecified, I10 - Essential (primary) hypertension, I44.1 - Atrioventricular block, second degree, R00.1 - Bradycardia, unspecified Comprehensive [place]. Panel Fast 3 Months E53.8 - Deficiency of other specified B group vitamins, E78.5 - Hyperlipidemia, unspecified, G20.A1 - Parkinson's disease without dyskinesia, without mention of fluctuations, G47.00 - Insomnia, unspecified, I10 - Essential (primary) hypertension, I44.1 - Atrioventricular block, second degree, R00.1 - Bradycardia, unspecified Lipid Panel 3 Months E53.8 - Deficiency of other specified B group vitamins, E78.5 - Hyperlipidemia, unspecified, G20.A1 - Parkinson's disease without dyskinesia, without mention of fluctuations, G47.00 - Insomnia, unspecified, I10 - Essential (primary) hypertension, I44.1 - Atrioventricular block, second degree, R00.1 - Bradycardia, unspecified UA CC w/rflx Micro + Cult 3 Months E53.8 - Deficiency of other specified B group vitamins, E78.5 - Hyperlipidemia, unspecified, G20.A1 - Parkinson's disease without dyskinesia, without mention of fluctuations, G47.00 - Insomnia, unspecified, I10 - Essential (primary) hypertension, I44.1 - Atrioventricular block, second degree, R00.1 - Bradycardia, unspecified TSH reflex Free T4 3 Months E53.8 - Deficiency of other specified B group vitamins, E78.5 - Hyperlipidemia, unspecified, G20.A1 - Parkinson's disease without dyskinesia, without mention of fluctuations, G47.00 - Insomnia, unspecified, I10 - Essential (primary) hypertension, I44.1 - Atrioventricular block, second degree, R00.1 - Bradycardia, unspecified Vitamin D 25-OH Total 3 Months E53.8 - Deficiency of other specified B group vitamins, E78.5 - Hyperlipidemia, unspecified, G20.A1 - Parkinson's disease without dyskinesia, without mention of fluctuations, G47.00 - Insomnia, unspecified, I10 - Essential (primary) hypertension, I44.1 - Atrioventricular block, second degree, R00.1 - Bradycardia, unspecified
--- OUTSIDE RECORDS SUMMARY | 2025-01-25 10:32 | XMS_ITS | Clinical Summary ---
Author Organization [address] [place] [address] Address [address] [place] [address] Phone Care Team Providers Care Animal Nursery Worker Name Role Phone Devika Valerio MD Primary Care Provider [phone] Allergies No known active allergies Medications traZODone [...] 06/22/2024 11:09 AM EDT Plan of Treatment Health Maintenance Due Date Last Done Comments [...] Test 11/02/2024 11/03/2023, 11/03/2023 COVID-19 Vaccine ( season) 2024 02/17/2022, 02/21/2021, 06/09/2020, Additional history [...] Insurance [employer] Care Teams Animal Nursery Worker Relationship Specialty Start Date End Date Devika Valerio MD [address] [place] [id number] PCP - General Internal Medicine 06/22/24
== END 2025-01-25 10:13 | disposition home or self-care (01) ==
LOC: HO.HMCH 09:29
DX: Z00.00 Encounter for general adult medical examination without abnormal findings (principal); I10 Essential (primary) hypertension; E78.5 Hyperlipidemia, unspecified; I44.1 Atrioventricular block, second degree; G47.00 Insomnia, unspecified; G20.A1 Parkinson's disease without dyskinesia, without mention of fluctuations; H54.42A3 Blindness left eye category 3, normal vision right eye; R00.1 Bradycardia, unspecified; E53.8 Deficiency of other specified B group vitamins

== ENCOUNTER → 2025-01-25 09:29 | Outpatient (BNVA) | payer MEDICARE, SELFPAY | DX: Z00.00 Encounter for general adult medical examination without abnormal findings (principal); E78.5 Hyperlipidemia, unspecified; I10 Essential (primary) hypertension; I44.1 Atrioventricular block, second degree; G47.00 Insomnia, unspecified; G20.A1 Parkinson's disease without dyskinesia, without mention of fluctuations; H54.42A3 Blindness left eye category 3, normal vision right eye; R00.1 Bradycardia, unspecified; E53.8 Deficiency of other specified B group vitamins | CPT/HCPCS: 99397 ==